=== PATIENT | male | born 1955 | race Caucasian/White ===

== ENCOUNTER 2025-01-29 06:17 | Day surgery (SDC) | payer MEDICARE, OTHER, SELFPAY ==
[2025-01-29 10:41] VITALS: BMI 30.8
[2025-01-29 10:43] VITALS: BMI 30.8
[2025-01-29 10:48] LABS: Glucose - Point of Care 188 mg/dl (70-99)
[2025-01-29 10:52] VITALS: BP 164/83
[2025-01-29 14:22] VITALS: BP 128/67
[2025-01-29 14:30] VITALS: BP 123/66
[2025-01-29 14:34] LABS: Glucose - Point of Care 163 mg/dl (70-99)
[2025-01-29 14:41] VITALS: BP 123/66
[2025-01-29 14:45] VITALS: BP 136/71
== END 2025-01-29 15:15 | disposition home or self-care (01) ==
LOC: SDS 06:17
PROVIDERS: ATTENDING PHYSICIAN Internal Medicine Gastroenterology; FAMILY PHYSICIAN Physician Assistant
DX: D12.0 Benign neoplasm of cecum (principal); K64.0 First degree hemorrhoids
CPT/HCPCS: 45390; 88305; 82962